=== PATIENT | male | born 1985 | race Two or more races ===

== ENCOUNTER 2017-08-23 22:29 | Emergency (ER) | payer OTHER ==
[2017-08-23] MEDS ORDERED: TDAP ADULT 0.5 ML INJ (BOOSTRIX) IM ONE (22:53)
--- NOTE | 2017-08-23 23:30 | EDPHY ---
H & P Stated Complaint: STEPPED ON NAIL R FOOT HPI/ROS: Chief complaint: Stepped on nail History of present illness: This is a 32-year-old male who presents to the emergency department after stepping on a nail this morning. He states he stepped on the nail, went through his boot and into the ball of his foot. He was able to pull it out. Since then he has had increasing pain. No report of abnormal coolness or paresthesias in the foot. No other injuries reported. He is not sure if his tetanus is up-to-date. - Personal History Current Tetanus Diphtheria and Acellular Pertussis (TDAP): Unsure - Medical/Surgical History Hx Asthma: No Hx Chronic Respiratory Disease: No Hx Diabetes: No Hx Cardiac Disease: No Hx Renal Disease: No Hx Cirrhosis: No Hx Alcoholism: No Hx HIV/AIDS: No Hx Splenectomy or Spleen Trauma: No Other PMH: DENIES - Social History Smoking Status: Current some day smoker - Physical Exam Exam: General: Alert, nontoxic Skin: Small puncture wound to the ball of the right foot. Musculoskeletal: Moving all digits in the right foot and the ankle well. He is able ambulate on his own. Vascular: Capillary refill brisk in all digits of the right foot. DP and PT pulses 2+. Neurologic: Sensation intact throughout the right foot. Constitutional: Initial Vital Signs Temperature (C) 36.6 C 08/23/17 22:36 Heart Rate 95 08/23/17 22:36 Respiratory Rate 16 08/23/17 22:36 Blood Pressure 157/99 H 08/23/17 22:36 O2 Sat (%) 93 08/23/17 22:36 O2 Delivery Mode Room Air Allergies/Adverse Reactions: No Known Allergies Allergy (Unverified 08/23/17 22:36) Home Medications: Medication Instructions Recorded Advil 08/23/17 Ciprofloxacin [Cipro] 500 mg PO BID 5 Days tab 08/23/17 Medical Decision Making - Diagnostics Imaging: I viewed and interpreted images myself ED Course/Re-evaluation: Patient seen under the supervision of my secondary supervising physician Dr. Paulo Garcia. Patient presents to the emergency department for evaluation of a puncture wound to his right foot. The foot is neurovascularly intact. As this was a puncture wound through a dirty boot I will place patient on ciprofloxacin for prevention of infection. Home care is discussed. Return precautions are given. Patient voiced understanding and agreement with plan. Differential Diagnosis: Included but not limited to puncture wound, cellulitis, fracture - Data Points Medications Given: Discontinued Medications Ciprofloxacin (Cipro) 500 mg PO EDNOW ONE PRN Reason: Protocol Stop: 08/23/17 23:32 Last Admin: 08/23/17 23:34 Dose: 500 mg Diphtheria/Tetanus/Acell Pertussis (Boostrix) 0.5 ml IM .ONCE ONE Stop: 08/23/17 22:54 Last Admin: 08/23/17 22:56 Dose: 0.5 ml Departure - Departure Disposition: Home, Routine, Self-Care Clinical Impression: Puncture wound Condition: Good Instructions: Ciprofloxacin (By mouth), Puncture Wound (ED) Additional Instructions: Follow-up with primary care doctor later this week or early next week for recheck If symptoms worsen or new symptoms develop return to the emergency room for recheck Referrals: [facility] [Other] - As per Instructions Prescriptions: Ciprofloxacin [Cipro] 500 mg PO BID 5 Days tab
[2017-08-23] MEDS ORDERED: CIPROFLOXACIN 500 MG TAB PO ONE (23:31)
[2017-08-23 23:44] VITALS: BP 125/85; PULSE 69; RESP 18; TEMP 97.5; O2SAT 97
== END 2017-08-23 23:44 | disposition home or self-care (01) ==
DX: S91.332A Puncture wound without foreign body, left foot, initial encounter (principal); F17.200 Nicotine dependence, unspecified, uncomplicated; Z23 Encounter for immunization; W45.0XXA Nail entering through skin, initial encounter